=== PATIENT | male | born 1950 | race Caucasian/White ===

== ENCOUNTER 2021-03-15 17:59 | Inpatient (IN) | payer MEDICARE, OTHER ==
[~2021-03-15] VITALS: Ht 170.2 cm; Wt 126.1 kg
[2021-03-15] MEDS: DEXAMETHASONE SOD PHOS 10 MG/1 ML VIAL IV SCH (18:36)
[2021-03-15] MEDS: CEFTRIAXONE 2 GM in SODIUM CHLORIDE 0.9% 100 ML IV SCH (18:36)
[2021-03-15 18:46] LABS: CREATINE KINASE MB 0.7 ng/mL (0-5.0)
[2021-03-15 18:53] LABS: BASOPHILS % 0.4 % (0.0-1.0); EOSINOPHILS # (AUTO) 0.1 (0.0-0.4); EOSINOPHILS % 0.9 % (0.0-6.0); HEMATOCRIT 44.1 % (38.2-49.6); HEMOGLOBIN 14.3 g/dL (14.0-18.0); LYMPHOCYTES # (AUTO) 0.5 (1.0-3.2); LYMPHOCYTES % 4.5 % (18.0-39.1); MEAN CORPUSCULAR HEMOGLOBIN 32.7 pg (28-32); MEAN CORPUSCULAR HGB CONC 32.4 g/dL (31-35); MEAN CORPUSCULAR VOLUME 100.9 fL (81-99); MONOCYTES # (AUTO) 0.5 (0.2-0.8); MONOCYTES % 4.8 % (4.4-11.3); NEUTROPHILS # (AUTO) 9.1 (2.1-6.9); NEUTROPHILS % 88.8 % (38.7-80.0); PLATELET COUNT 212 x10e3/uL (140-360); RED BLOOD COUNT 4.37 x10e6/uL (4.3-5.7); RED CELL DISTRIBUTION WIDTH 12.7 % (11.7-14.4)
[2021-03-15 19:03] LABS: ALBUMIN/GLOBULIN RATIO 0.8 (0.8-2.0); ANION GAP 11.9 mmol/L (8-16); CREATININE, SERUM 0.8 mg/dL (0.72-1.25); POTASSIUM 3.9 mmol/L (3.5-5.1)
[2021-03-15] MEDS ORDERED: REMDESIVIR 200MG 200 MG in SODIUM CHLORIDE 0.9% 100 ML IV ONE (19:30)
[2021-03-15] MEDS ORDERED: SODIUM CHLORIDE FLUSH 10 ML SYR INJ PRN (19:45)
[2021-03-16 04:23] LABS: BASOPHILS % 0.1 % (0.0-1.0); HEMATOCRIT 40.3 % (38.2-49.6); HEMOGLOBIN 13.3 g/dL (14.0-18.0); LYMPHOCYTES # (AUTO) 0.2 (1.0-3.2); LYMPHOCYTES % 2.5 % (18.0-39.1); MEAN CORPUSCULAR HEMOGLOBIN 32.5 pg (28-32); MEAN CORPUSCULAR VOLUME 98.5 fL (81-99); MONOCYTES # (AUTO) 0.2 (0.2-0.8); MONOCYTES % 2.2 % (4.4-11.3); NEUTROPHILS # (AUTO) 8.7 (2.1-6.9); NEUTROPHILS % 94.8 % (38.7-80.0); PLATELET COUNT 245 x10e3/uL (140-360); RED BLOOD COUNT 4.09 x10e6/uL (4.3-5.7)
[2021-03-16 04:38] LABS: ANION GAP 12.3 mmol/L (8-16); CALCIUM 8.3 mg/dL (8.4-10.2); CREATININE, SERUM 0.74 mg/dL (0.72-1.25); PHOSPHORUS 4.3 MG/DL (2.3-4.7); POTASSIUM 4.3 mmol/L (3.5-5.1)
[2021-03-16 04:45] LABS: CREATINE KINASE MB 0.9 ng/mL (0-5.0)
[2021-03-16] MEDS: ENOXAPARIN 30 MG/0.3 ML SYR SC SCH ×2 (07:40→17:01)
[2021-03-16] MEDS: ZINC SULFATE 50 MG CAP PO SCH (07:40)
[2021-03-16] MEDS: DEXAMETHASONE SOD PHOS 10 MG/1 ML VIAL IV SCH (07:40)
[2021-03-16] MEDS: ASCORBIC ACID 500 MG TAB PO SCH ×2 (07:40→17:01)
[2021-03-16] MEDS ORDERED: ONDANSETRON HCL INJ 2MG/ML 2ML 2 MG/ML VIAL IV PRN (10:30)
[2021-03-16] MEDS ORDERED: DOCUSATE SODIUM 100 MG CAP PO PRN (11:30)
[2021-03-16 12:20] LABS: CHOL/HDL RATIO 3.2 (3.9-4.7)
[2021-03-16] MEDS: AMLODIPINE BESYLATE 10 MG TAB PO SCH (12:26)
[2021-03-16 12:39] LABS: HEMATOCRIT 44.6 % (38.2-49.6); HEMOGLOBIN 14.3 g/dL (14.0-18.0); LYMPHOCYTES # (AUTO) 0.2 (1.0-3.2); LYMPHOCYTES % 2.2 % (18.0-39.1); MEAN CORPUSCULAR HEMOGLOBIN 32.7 pg (28-32); MEAN CORPUSCULAR HGB CONC 32.1 g/dL (31-35); MEAN CORPUSCULAR VOLUME 102.1 fL (81-99); MONOCYTES # (AUTO) 0.2 (0.2-0.8); MONOCYTES % 1.9 % (4.4-11.3); NEUTROPHILS # (AUTO) 8.8 (2.1-6.9); NEUTROPHILS % 95.7 % (38.7-80.0); PLATELET COUNT 172 x10e3/uL (140-360); RED BLOOD COUNT 4.37 x10e6/uL (4.3-5.7); RED CELL DISTRIBUTION WIDTH 12.2 % (11.7-14.4)
[2021-03-16 12:47] LABS: ALBUMIN 2.6 g/dL (3.5-5.0); ALBUMIN/GLOBULIN RATIO 0.6 (0.8-2.0); ANION GAP 11.4 mmol/L (8-16); CALCIUM 9.4 mg/dL (8.4-10.2); CREATININE, SERUM 0.8 mg/dL (0.72-1.25); POTASSIUM 4.4 mmol/L (3.5-5.1)
[2021-03-16 13:33] LABS: CREATINE KINASE MB 1.3 ng/mL (0-5.0)
[2021-03-16] MEDS ORDERED: HYDRALAZINE HCL 20 MG/ML VIAL IV PRN (18:00)
[2021-03-16] MEDS: CEFTRIAXONE 2 GM in SODIUM CHLORIDE 0.9% 100 ML IV SCH (19:01)
[2021-03-16] MEDS: REMDESIVIR 100MG 100 MG in SODIUM CHLORIDE 0.9% 100 ML IV SCH (19:54)
[2021-03-16] MEDS ORDERED: MELATONIN 3 MG TAB PO PRN (21:00)
[2021-03-16 21:31] LABS: CREATINE KINASE MB 1.6 ng/mL (0-5.0)
[2021-03-16 22:30] VITALS: BP 149/71
[2021-03-16 23:00] VITALS: BP 157/75
[2021-03-17] VITALS (9 sets, daily range): BP systolic 130–168; BP diastolic 71–89
[2021-03-17 06:13] LABS: BASOPHILS % 0.1 % (0.0-1.0); HEMATOCRIT 42.2 % (38.2-49.6); HEMOGLOBIN 13.8 g/dL (14.0-18.0); LYMPHOCYTES # (AUTO) 0.5 (1.0-3.2); LYMPHOCYTES % 3.5 % (18.0-39.1); MEAN CORPUSCULAR HEMOGLOBIN 32.4 pg (28-32); MEAN CORPUSCULAR HGB CONC 32.7 g/dL (31-35); MEAN CORPUSCULAR VOLUME 99.1 fL (81-99); MONOCYTES # (AUTO) 0.9 (0.2-0.8); MONOCYTES % 5.7 % (4.4-11.3); NEUTROPHILS # (AUTO) 13.5 (2.1-6.9); NEUTROPHILS % 90.1 % (38.7-80.0); PLATELET COUNT 313 x10e3/uL (140-360); RED BLOOD COUNT 4.26 x10e6/uL (4.3-5.7); RED CELL DISTRIBUTION WIDTH 12.2 % (11.7-14.4)
[2021-03-17 06:32] LABS: ANION GAP 11.2 mmol/L (8-16); CALCIUM 9.1 mg/dL (8.4-10.2); CREATININE, SERUM 0.83 mg/dL (0.72-1.25); MAGNESIUM 2.2 MG/DL (1.3-2.1); PHOSPHORUS 3.9 MG/DL (2.3-4.7); POTASSIUM 4.2 mmol/L (3.5-5.1)
[2021-03-17] MEDS: ENOXAPARIN 30 MG/0.3 ML SYR SC SCH ×2 (08:18→17:21)
[2021-03-17] MEDS: DEXAMETHASONE SOD PHOS 10 MG/1 ML VIAL IV SCH (08:18)
[2021-03-17] MEDS: ZINC SULFATE 50 MG CAP PO SCH (08:18)
[2021-03-17] MEDS: LORATADINE 10 MG TAB PO SCH (08:18)
[2021-03-17] MEDS: MULTIVITAMINS/MINERALS TAB PO SCH (08:18)
[2021-03-17] MEDS: AMLODIPINE BESYLATE 10 MG TAB PO SCH (08:18)
[2021-03-17] MEDS: CHOLECALCIFEROL 1,000 UNIT TAB PO SCH (08:18)
[2021-03-17] MEDS: ASCORBIC ACID 500 MG TAB PO SCH ×2 (08:18→17:21)
[2021-03-17 09:32] LABS: ALBUMIN 2.7 g/dL (3.5-5.0); BILIRUBIN,DIRECT 0.2 mg/dL (0.0-0.5)
[2021-03-17] MEDS: CEFTRIAXONE 2 GM in SODIUM CHLORIDE 0.9% 100 ML IV SCH (17:21)
[2021-03-17] MEDS ORDERED: SODIUM CHLORIDE 0.9% 50ML 50 ML ONE (18:40)
[2021-03-17] MEDS ORDERED: IOPAMIDOL 370 MG/ML 200 ML INFUS..BTL INJ ONE (18:41)
[2021-03-17] MEDS: REMDESIVIR 100MG 100 MG in SODIUM CHLORIDE 0.9% 100 ML IV SCH (19:50)
[2021-03-18] VITALS (7 sets, daily range): BP systolic 144–163; BP diastolic 80–85
[2021-03-18] MEDS: MULTIVITAMINS/MINERALS TAB PO SCH (08:15)
[2021-03-18] MEDS: ENOXAPARIN 30 MG/0.3 ML SYR SC SCH ×2 (08:15→16:38)
[2021-03-18] MEDS: GUAIFENESIN/DEXTROMETHORPHAN LIQD 5 ML UDC NG PRN (08:15)
[2021-03-18] MEDS: LORATADINE 10 MG TAB PO SCH (08:15)
[2021-03-18] MEDS: DEXAMETHASONE SOD PHOS 10 MG/1 ML VIAL IV SCH (08:15)
[2021-03-18] MEDS: ASCORBIC ACID 500 MG TAB PO SCH ×2 (08:15→16:38)
[2021-03-18] MEDS: ZINC SULFATE 50 MG CAP PO SCH (08:15)
[2021-03-18] MEDS: BARICITINIB 2 MG TABLET PO SCH (08:15)
[2021-03-18] MEDS: AMLODIPINE BESYLATE 10 MG TAB PO SCH (08:15)
[2021-03-18] MEDS: CHOLECALCIFEROL 1,000 UNIT TAB PO SCH (08:15)
[2021-03-18 09:55] LABS: BASOPHILS % 0.1 % (0.0-1.0); EOSINOPHILS % 0.1 % (0.0-6.0); HEMATOCRIT 41.6 % (38.2-49.6); HEMOGLOBIN 13.6 g/dL (14.0-18.0); LYMPHOCYTES # (AUTO) 0.4 (1.0-3.2); LYMPHOCYTES % 3.1 % (18.0-39.1); MEAN CORPUSCULAR HEMOGLOBIN 32.3 pg (28-32); MEAN CORPUSCULAR HGB CONC 32.7 g/dL (31-35); MEAN CORPUSCULAR VOLUME 98.8 fL (81-99); MONOCYTES % 7.2 % (4.4-11.3); NEUTROPHILS # (AUTO) 12.4 (2.1-6.9); NEUTROPHILS % 88.4 % (38.7-80.0); PLATELET COUNT 292 x10e3/uL (140-360); RED BLOOD COUNT 4.21 x10e6/uL (4.3-5.7); RED CELL DISTRIBUTION WIDTH 12.1 % (11.7-14.4)
[2021-03-18 10:17] LABS: ALBUMIN 2.5 g/dL (3.5-5.0); ALBUMIN/GLOBULIN RATIO 0.7 (0.8-2.0); CALCIUM 9.2 mg/dL (8.4-10.2); CREATININE, SERUM 0.71 mg/dL (0.72-1.25)
[2021-03-18] MEDS: REMDESIVIR 100MG 100 MG in SODIUM CHLORIDE 0.9% 100 ML IV SCH (20:31)
[2021-03-19] VITALS (8 sets, daily range): BP systolic 141–162; BP diastolic 68–82
[2021-03-19 06:12] LABS: BASOPHILS % 0.3 % (0.0-1.0); EOSINOPHILS % 0.1 % (0.0-6.0); HEMATOCRIT 41.1 % (38.2-49.6); HEMOGLOBIN 13.5 g/dL (14.0-18.0); LYMPHOCYTES # (AUTO) 0.6 (1.0-3.2); LYMPHOCYTES % 4.9 % (18.0-39.1); MEAN CORPUSCULAR HEMOGLOBIN 32.3 pg (28-32); MEAN CORPUSCULAR HGB CONC 32.8 g/dL (31-35); MEAN CORPUSCULAR VOLUME 98.3 fL (81-99); MONOCYTES # (AUTO) 1.2 (0.2-0.8); MONOCYTES % 8.9 % (4.4-11.3); NEUTROPHILS # (AUTO) 11.1 (2.1-6.9); NEUTROPHILS % 84.3 % (38.7-80.0); PLATELET COUNT 274 x10e3/uL (140-360); RED BLOOD COUNT 4.18 x10e6/uL (4.3-5.7)
[2021-03-19 06:43] LABS: ALBUMIN 2.5 g/dL (3.5-5.0); ALBUMIN/GLOBULIN RATIO 0.7 (0.8-2.0); ANION GAP 9.1 mmol/L (8-16); CALCIUM 8.8 mg/dL (8.4-10.2); CREATININE, SERUM 0.71 mg/dL (0.72-1.25); POTASSIUM 4.1 mmol/L (3.5-5.1)
[2021-03-19] MEDS: AMLODIPINE BESYLATE 10 MG TAB PO SCH (08:02)
[2021-03-19] MEDS: ENOXAPARIN 30 MG/0.3 ML SYR SC SCH ×2 (08:02→16:52)
[2021-03-19] MEDS: BARICITINIB 2 MG TABLET PO SCH (08:02)
[2021-03-19] MEDS: LORATADINE 10 MG TAB PO SCH (08:02)
[2021-03-19] MEDS: CHOLECALCIFEROL 1,000 UNIT TAB PO SCH (08:02)
[2021-03-19] MEDS: MULTIVITAMINS/MINERALS TAB PO SCH (08:02)
[2021-03-19] MEDS: ZINC SULFATE 50 MG CAP PO SCH (08:02)
[2021-03-19] MEDS: DEXAMETHASONE SOD PHOS 10 MG/1 ML VIAL IV SCH (08:02)
[2021-03-19] MEDS: ASCORBIC ACID 500 MG TAB PO SCH ×2 (08:02→16:52)
[2021-03-19] MEDS: GUAIFENESIN/DEXTROMETHORPHAN LIQD 5 ML UDC NG PRN (10:27)
[2021-03-19] MEDS: HYDRALAZINE HCL 10 MG TAB PO SCH ×2 (14:00→19:31)
[2021-03-19] MEDS: REMDESIVIR 100MG 100 MG in SODIUM CHLORIDE 0.9% 100 ML IV SCH (19:31)
[2021-03-20] VITALS (13 sets, daily range): BP systolic 130–169; BP diastolic 68–90
[2021-03-20 08:30] LABS: BASOPHILS # (AUTO) 0.1 (0.0-0.1); BASOPHILS % 0.6 % (0.0-1.0); EOSINOPHILS # (AUTO) 0.1 (0.0-0.4); EOSINOPHILS % 0.3 % (0.0-6.0); HEMATOCRIT 45.2 % (38.2-49.6); HEMOGLOBIN 14.6 g/dL (14.0-18.0); LYMPHOCYTES # (AUTO) 0.9 (1.0-3.2); LYMPHOCYTES % 6.3 % (18.0-39.1); MEAN CORPUSCULAR HEMOGLOBIN 32.2 pg (28-32); MEAN CORPUSCULAR HGB CONC 32.3 g/dL (31-35); MEAN CORPUSCULAR VOLUME 99.8 fL (81-99); MONOCYTES # (AUTO) 0.9 (0.2-0.8); NEUTROPHILS # (AUTO) 12.2 (2.1-6.9); NEUTROPHILS % 82.7 % (38.7-80.0); PLATELET COUNT 231 x10e3/uL (140-360); RED BLOOD COUNT 4.53 x10e6/uL (4.3-5.7)
[2021-03-20 09:05] LABS: ALBUMIN 2.6 g/dL (3.5-5.0); ALBUMIN/GLOBULIN RATIO 0.7 (0.8-2.0); ANION GAP 11.6 mmol/L (8-16); CALCIUM 9.2 mg/dL (8.4-10.2); CREATININE, SERUM 0.7 mg/dL (0.72-1.25); POTASSIUM 4.6 mmol/L (3.5-5.1)
[2021-03-20] MEDS: MULTIVITAMINS/MINERALS TAB PO SCH (09:45)
[2021-03-20] MEDS: AMLODIPINE BESYLATE 10 MG TAB PO SCH (09:46)
[2021-03-20] MEDS: BARICITINIB 2 MG TABLET PO SCH (09:47)
[2021-03-20] MEDS: CHOLECALCIFEROL 1,000 UNIT TAB PO SCH (09:47)
[2021-03-20] MEDS: LORATADINE 10 MG TAB PO SCH (09:47)
[2021-03-20] MEDS: DEXAMETHASONE SOD PHOS 10 MG/1 ML VIAL IV SCH (09:47)
[2021-03-20] MEDS: ASCORBIC ACID 500 MG TAB PO SCH ×2 (09:47→17:15)
[2021-03-20] MEDS: ENOXAPARIN 30 MG/0.3 ML SYR SC SCH ×2 (09:47→17:15)
[2021-03-20] MEDS: ZINC SULFATE 50 MG CAP PO SCH (09:47)
[2021-03-20] MEDS: HYDRALAZINE HCL 25 MG TAB PO SCH ×2 (13:41→21:28)
[2021-03-21] VITALS (9 sets, daily range): BP systolic 142–166; BP diastolic 70–90
[2021-03-21] MEDS: HYDRALAZINE HCL 25 MG TAB PO SCH ×3 (06:00→21:14)
[2021-03-21 06:06] LABS: BASOPHILS # (AUTO) 0.1 (0.0-0.1); BASOPHILS % 0.6 % (0.0-1.0); EOSINOPHILS # (AUTO) 0.2 (0.0-0.4); EOSINOPHILS % 0.9 % (0.0-6.0); HEMATOCRIT 43.3 % (38.2-49.6); HEMOGLOBIN 14.3 g/dL (14.0-18.0); LYMPHOCYTES # (AUTO) 0.9 (1.0-3.2); LYMPHOCYTES % 5.3 % (18.0-39.1); MEAN CORPUSCULAR HEMOGLOBIN 32.4 pg (28-32); MEAN CORPUSCULAR VOLUME 98.2 fL (81-99); MONOCYTES # (AUTO) 0.9 (0.2-0.8); MONOCYTES % 5.2 % (4.4-11.3); NEUTROPHILS # (AUTO) 14.1 (2.1-6.9); NEUTROPHILS % 83.4 % (38.7-80.0); PLATELET COUNT 240 x10e3/uL (140-360); RED BLOOD COUNT 4.41 x10e6/uL (4.3-5.7)
[2021-03-21 06:26] LABS: ALBUMIN 2.6 g/dL (3.5-5.0); ALBUMIN/GLOBULIN RATIO 0.7 (0.8-2.0); ANION GAP 14.3 mmol/L (8-16); CALCIUM 9.2 mg/dL (8.4-10.2); CREATININE, SERUM 0.75 mg/dL (0.72-1.25); POTASSIUM 4.3 mmol/L (3.5-5.1)
[2021-03-21] MEDS: BARICITINIB 2 MG TABLET PO SCH (09:43)
[2021-03-21] MEDS: ENOXAPARIN 30 MG/0.3 ML SYR SC SCH ×2 (09:43→18:37)
[2021-03-21] MEDS: DEXAMETHASONE SOD PHOS 10 MG/1 ML VIAL IV SCH (09:43)
[2021-03-21] MEDS: CHOLECALCIFEROL 1,000 UNIT TAB PO SCH (09:43)
[2021-03-21] MEDS: ASCORBIC ACID 500 MG TAB PO SCH ×2 (09:43→18:37)
[2021-03-21] MEDS: ZINC SULFATE 50 MG CAP PO SCH (09:43)
[2021-03-21] MEDS: LORATADINE 10 MG TAB PO SCH (09:44)
[2021-03-21] MEDS: MULTIVITAMINS/MINERALS TAB PO SCH (09:44)
[2021-03-21] MEDS: AMLODIPINE BESYLATE 10 MG TAB PO SCH (09:44)
[2021-03-22] VITALS (8 sets, daily range): BP systolic 149–158; BP diastolic 71–83
[2021-03-22 05:36] LABS: BASOPHILS # (AUTO) 0.1 (0.0-0.1); BASOPHILS % 0.5 % (0.0-1.0); EOSINOPHILS # (AUTO) 0.2 (0.0-0.4); HEMATOCRIT 39.2 % (38.2-49.6); HEMOGLOBIN 12.8 g/dL (14.0-18.0); LYMPHOCYTES # (AUTO) 0.8 (1.0-3.2); LYMPHOCYTES % 4.8 % (18.0-39.1); MEAN CORPUSCULAR HGB CONC 32.7 g/dL (31-35); MONOCYTES # (AUTO) 0.8 (0.2-0.8); MONOCYTES % 4.9 % (4.4-11.3); NEUTROPHILS # (AUTO) 13.5 (2.1-6.9); PLATELET COUNT 238 x10e3/uL (140-360); RED CELL DISTRIBUTION WIDTH 12.1 % (11.7-14.4)
[2021-03-22] MEDS: HYDRALAZINE HCL 25 MG TAB PO SCH ×3 (05:37→21:26)
[2021-03-22 06:00] LABS: ALBUMIN 2.4 g/dL (3.5-5.0); ALBUMIN/GLOBULIN RATIO 0.7 (0.8-2.0); ANION GAP 8.1 mmol/L (8-16); CALCIUM 8.7 mg/dL (8.4-10.2); CREATININE, SERUM 0.75 mg/dL (0.72-1.25); POTASSIUM 4.1 mmol/L (3.5-5.1)
[2021-03-22] MEDS: LORATADINE 10 MG TAB PO SCH (08:15)
[2021-03-22] MEDS: AMLODIPINE BESYLATE 10 MG TAB PO SCH (08:15)
[2021-03-22] MEDS: BARICITINIB 2 MG TABLET PO SCH (08:15)
[2021-03-22] MEDS: MULTIVITAMINS/MINERALS TAB PO SCH (08:15)
[2021-03-22] MEDS: ASCORBIC ACID 500 MG TAB PO SCH ×2 (08:16→16:00)
[2021-03-22] MEDS: CHOLECALCIFEROL 1,000 UNIT TAB PO SCH (08:16)
[2021-03-22] MEDS: ZINC SULFATE 50 MG CAP PO SCH (08:16)
[2021-03-22] MEDS: ENOXAPARIN 30 MG/0.3 ML SYR SC SCH ×2 (08:16→16:00)
[2021-03-22] MEDS: GUAIFENESIN/DEXTROMETHORPHAN LIQD 5 ML UDC NG PRN (16:00)
[2021-03-22] MEDS: BENZONATATE 100 MG CAP PO PRN (16:00)
[2021-03-23] VITALS (8 sets, daily range): BP systolic 120–156; BP diastolic 50–73
[2021-03-23] MEDS: HYDRALAZINE HCL 25 MG TAB PO SCH ×3 (06:14→21:34)
[2021-03-23] MEDS: CHOLECALCIFEROL 1,000 UNIT TAB PO SCH (09:28)
[2021-03-23] MEDS: LORATADINE 10 MG TAB PO SCH (09:28)
[2021-03-23] MEDS: AMLODIPINE BESYLATE 10 MG TAB PO SCH (09:28)
[2021-03-23] MEDS: ASCORBIC ACID 500 MG TAB PO SCH ×2 (09:28→16:51)
[2021-03-23] MEDS: BARICITINIB 2 MG TABLET PO SCH (09:28)
[2021-03-23] MEDS: ZINC SULFATE 50 MG CAP PO SCH (09:28)
[2021-03-23] MEDS: MULTIVITAMINS/MINERALS TAB PO SCH (09:28)
[2021-03-23] MEDS: GUAIFENESIN/DEXTROMETHORPHAN LIQD 5 ML UDC NG PRN ×2 (12:14→22:30)
[2021-03-23] MEDS: ENOXAPARIN SOD INJ 40 MG/0.4 ML SYR SC SCH (16:51)
[2021-03-23] MEDS: BENZONATATE 100 MG CAP PO PRN (22:00)
[2021-03-24] VITALS (8 sets, daily range): BP systolic 135–158; BP diastolic 60–82
[2021-03-24] MEDS: HYDRALAZINE HCL 25 MG TAB PO SCH ×3 (06:06→21:14)
[2021-03-24] MEDS: ZINC SULFATE 50 MG CAP PO SCH (09:23)
[2021-03-24] MEDS: CHOLECALCIFEROL 1,000 UNIT TAB PO SCH (09:23)
[2021-03-24] MEDS: BARICITINIB 2 MG TABLET PO SCH (09:23)
[2021-03-24] MEDS: AMLODIPINE BESYLATE 10 MG TAB PO SCH (09:23)
[2021-03-24] MEDS: LORATADINE 10 MG TAB PO SCH (09:23)
[2021-03-24] MEDS: ASCORBIC ACID 500 MG TAB PO SCH ×2 (09:23→16:17)
[2021-03-24] MEDS: MULTIVITAMINS/MINERALS TAB PO SCH (09:23)
[2021-03-24 14:05] LABS: BASOPHILS % 0.3 % (0.0-1.0); EOSINOPHILS # (AUTO) 0.3 (0.0-0.4); EOSINOPHILS % 2.8 % (0.0-6.0); HEMATOCRIT 37.6 % (38.2-49.6); HEMOGLOBIN 12.3 g/dL (14.0-18.0); LYMPHOCYTES # (AUTO) 0.8 (1.0-3.2); LYMPHOCYTES % 6.8 % (18.0-39.1); MEAN CORPUSCULAR HEMOGLOBIN 32.5 pg (28-32); MEAN CORPUSCULAR HGB CONC 32.7 g/dL (31-35); MEAN CORPUSCULAR VOLUME 99.5 fL (81-99); MONOCYTES # (AUTO) 0.6 (0.2-0.8); MONOCYTES % 5.5 % (4.4-11.3); NEUTROPHILS # (AUTO) 9.3 (2.1-6.9); NEUTROPHILS % 79.6 % (38.7-80.0); PLATELET COUNT 204 x10e3/uL (140-360); RED BLOOD COUNT 3.78 x10e6/uL (4.3-5.7); RED CELL DISTRIBUTION WIDTH 12.3 % (11.7-14.4)
[2021-03-24 14:21] LABS: ANION GAP 13.3 mmol/L (8-16); CALCIUM 10.5 mg/dL (8.4-10.2); CREATININE, SERUM 0.75 mg/dL (0.72-1.25); POTASSIUM 4.3 mmol/L (3.5-5.1)
[2021-03-24] MEDS: ENOXAPARIN SOD INJ 40 MG/0.4 ML SYR SC SCH (16:17)
[2021-03-24] MEDS: BENZONATATE 100 MG CAP PO PRN (21:32)
[2021-03-25] VITALS (7 sets, daily range): BP systolic 133–149; BP diastolic 60–77
[2021-03-25] MEDS: HYDRALAZINE HCL 25 MG TAB PO SCH ×3 (05:34→21:23)
[2021-03-25] MEDS: MULTIVITAMINS/MINERALS TAB PO SCH (08:54)
[2021-03-25] MEDS: LORATADINE 10 MG TAB PO SCH (08:54)
[2021-03-25] MEDS: BARICITINIB 2 MG TABLET PO SCH (08:55)
[2021-03-25] MEDS: ZINC SULFATE 50 MG CAP PO SCH (08:55)
[2021-03-25] MEDS: CHOLECALCIFEROL 1,000 UNIT TAB PO SCH (08:55)
[2021-03-25] MEDS: AMLODIPINE BESYLATE 10 MG TAB PO SCH (08:55)
[2021-03-25] MEDS: ASCORBIC ACID 500 MG TAB PO SCH ×2 (08:55→17:00)
[2021-03-25] MEDS ORDERED: ONDANSETRON HCL 4 MG ORAL DISINTEGRATING TAB PO PRN (14:30)
[2021-03-25] MEDS: ENOXAPARIN SOD INJ 40 MG/0.4 ML SYR SC SCH (17:00)
[2021-03-26] VITALS (9 sets, daily range): BP systolic 134–148; BP diastolic 62–78
[2021-03-26] MEDS: HYDRALAZINE HCL 25 MG TAB PO SCH ×3 (05:06→21:17)
[2021-03-26] MEDS: ZINC SULFATE 50 MG CAP PO SCH (08:54)
[2021-03-26] MEDS: ASCORBIC ACID 500 MG TAB PO SCH ×2 (08:54→16:40)
[2021-03-26] MEDS: MULTIVITAMINS/MINERALS TAB PO SCH (08:54)
[2021-03-26] MEDS: LORATADINE 10 MG TAB PO SCH (08:54)
[2021-03-26] MEDS: BARICITINIB 2 MG TABLET PO SCH (08:54)
[2021-03-26] MEDS: CHOLECALCIFEROL 1,000 UNIT TAB PO SCH (08:54)
[2021-03-26] MEDS: AMLODIPINE BESYLATE 10 MG TAB PO SCH (10:11)
[2021-03-26] MEDS: ENOXAPARIN SOD INJ 40 MG/0.4 ML SYR SC SCH (16:40)
[2021-03-27] VITALS (7 sets, daily range): BP systolic 132–143; BP diastolic 65–76
[2021-03-27] MEDS: HYDRALAZINE HCL 25 MG TAB PO SCH ×2 (06:03→14:39)
[2021-03-27] MEDS: BARICITINIB 2 MG TABLET PO SCH (09:42)
[2021-03-27] MEDS: ZINC SULFATE 50 MG CAP PO SCH (09:42)
[2021-03-27] MEDS: LORATADINE 10 MG TAB PO SCH (09:42)
[2021-03-27] MEDS: ASCORBIC ACID 500 MG TAB PO SCH ×2 (09:42→17:15)
[2021-03-27] MEDS: CHOLECALCIFEROL 1,000 UNIT TAB PO SCH (09:42)
[2021-03-27] MEDS: MULTIVITAMINS/MINERALS TAB PO SCH (09:42)
[2021-03-27] MEDS: AMLODIPINE BESYLATE 10 MG TAB PO SCH (09:42)
[2021-03-27] MEDS ORDERED: DEXAMETHASONE 4 MG TAB PO SCH (11:15)
[2021-03-27] MEDS: ENOXAPARIN SOD INJ 40 MG/0.4 ML SYR SC SCH (17:15)
[2021-03-27] MEDS ORDERED: Cholecalciferol PO (18:03)
[2021-03-27] MEDS ORDERED: Multivitamins/Minerals PO (18:03)
[2021-03-27] MEDS ORDERED: Zinc Sulfate PO (18:03)
[2021-03-27] MEDS ORDERED: PREDNISONE20 MG PO (18:03)
[2021-03-27] MEDS ORDERED: HYDRALAZINE HCL25 MG PO (18:03)
[2021-03-27] MEDS ORDERED: Benzonatate PO (18:03)
[2021-03-27] MEDS ORDERED: NORVASC10 MG PO (18:03)
[2021-03-27] MEDS ORDERED: ASCORBIC ACID500 MG PO (18:03)
[2021-03-27] MEDS ORDERED: LORATADINE10 MG PO (18:03)
== END 2021-03-27 20:02 | disposition home or self-care (01) | DRG 177 ==
LOC: ER 18:08 → ERHOLD 19:53 → IMCU 03-16 22:19
PROVIDERS: ADMIT Internal Medicine; ATTEND Internal Medicine
PROC: 3E0333Z Introduction of Anti-inflammatory into Peripheral Vein, Percutaneous Approach (ICD-10-PCS; principal; 2021-03-15)
PROC: XW033E5 Introduction of Remdesivir Anti-infective into Peripheral Vein, Percutaneous Approach, New Technology Group 5 (ICD-10-PCS; 2021-03-15)
PROC: 5A0945A Assistance with Respiratory Ventilation, 24-96 Consecutive Hours, High Flow/Velocity Cannula (ICD-10-PCS; 2021-03-15)
PROC: XW0DXM6 Introduction of Baricitinib into Mouth and Pharynx, External Approach, New Technology Group 6 (ICD-10-PCS; 2021-03-17)
DX: U07.1 COVID-19 (principal); J12.82 Pneumonia due to coronavirus disease 2019; J96.01 Acute respiratory failure with hypoxia; Z68.41 Body mass index [BMI] 40.0-44.9, adult; I11.0 Hypertensive heart disease with heart failure; I50.9 Heart failure, unspecified; I25.10 Atherosclerotic heart disease of native coronary artery without angina pectoris; Z95.5 Presence of coronary angioplasty implant and graft; E78.5 Hyperlipidemia, unspecified; E66.01 Morbid (severe) obesity due to excess calories; D72.829 Elevated white blood cell count, unspecified; R53.81 Other malaise
CPT/HCPCS: 36415; 71045; 71260; 80048; 80053; 80061; 80076; 82550; 82553; 82728; 83036; 83605; 83735; 84100; 84484; 85025; 86141; 87040; 93005; 94799; 97139; 99285; J0248; J0360; J0456; J0696; J1100; J1650; J2405; J7050; Q9967; U0002